=== PATIENT | male | born 1965 | race Caucasian/White ===

== ENCOUNTER 2017-08-31 23:45 | Emergency (ER) | payer BC, OTHER ==
--- NOTE | 2017-09-01 00:31 | ED Physician Documentation ---
PD HPI Fall - Stated complaint Stated Complaint: FALL,RIB PX - Chief complaint Chief Complaint: Trauma Ch/Bk - History obtained from History obtained from: Patient, Family - History of Present Illness Mechanism of injury: Slipped Fall distance: Other (three steps) Where injury occurred: Home Timing - onset: Today Injury(ies) location: Back, Left Quality of pain: Pain, Aching Associated symptoms: No: LOC, AMS, Amnesia Worsens with: Movement, Palpation Similar symptoms before: Has not had sx before Recently seen: Not recently seen - Additional information Additional information: patient is a 52 year old male with no significant past medical history who is presenting to the emergency department for rib and back pain after falling. patient states that the alarm for his septic tank went off and he went outside to check on it and slipped on his third step. Patient denies loc but is complaining of left posterior rib pain. patient states that he has fractured his ribs before and it feels the same. Review of Systems Constitutional: denies: Fever Eyes: denies: Decreased vision Ears: denies: Drainage/discharge Nose: denies: Epistaxis Throat: denies: Dental pain / toothache Cardiac: denies: Chest pain / pressure Respiratory: denies: Cough, Wheezing GI: denies: Nausea, Vomiting : reports: Reviewed and negative Skin: reports: Abrasion (s) Musculoskeletal: reports: Back pain, Extremity pain Neurologic: denies: Generalized weakness, Focal weakness, Headache, Head injury , LOC Immunocompromised: denies: Immunocompromised PD PAST MEDICAL HISTORY - Past Medical History Past Medical History: Yes Cardiovascular: Hypertension, High cholesterol Endocrine/Autoimmune: Type 2 diabetes - Past Surgical History Past Surgical History: Yes - Present Medications Home Medications: Ambulatory Orders Medication Instructions Recorded Confirmed Atorvastatin Calcium 1 tab PO DAILY 08/31/17 08/31/17 Insulin Glargine [Lantus Solostar] 30 units SQ BID 08/31/17 08/31/17 Lisinopril 1 tab PO DAILY 08/31/17 08/31/17 metFORMIN [Glucophage] 1 tab PO DAILY 08/31/17 08/31/17 Oxycodone HCl/Acetaminophen 1 - 2 each PO Q6H PRN #14 tablet 09/01/17 [Percocet 5-325 mg Tablet] - Allergies Allergies/Adverse Reactions: Allergies Allergy/AdvReac Type Severity Reaction Status Date / Time No Known Drug Allergies Allergy Verified 08/31/17 23:53 - Social History Does the pt smoke?: No Smoking Status: Never smoker Does the pt drink ETOH?: Yes Does the pt have substance abuse?: No - Immunizations Immunizations are current?: Yes - POLST Patient has POLST: No PD ED PE NORMAL - Vitals Vital signs reviewed: Yes - General General: Alert and oriented X 3, No acute distress - HEENT HEENT: Atraumatic, PERRL - Neck Neck: No bony TTP - Cardiac Cardiac: RRR, No murmur - Respiratory Respiratory: No respiratory distress - Extremities Extremities: No deformity, Normal ROM s pain - Neuro Neuro: Alert and oriented X 3, No motor deficit, No sensory deficit, Normal speech Eye Opening: Spontaneous Motor: Obeys Commands Verbal: Oriented GCS Score: 15 PD ED PE EXPANDED - Back Back: Vertebral tenderness (tenderness to palpation of upper thoracic region with small abrasion. ), Soft tissue tenderness Results - Vitals Vitals: Vital Signs - 24 hr 08/31/17 23:50 Temperature 36.4 C L Heart Rate 89 Respiratory 16 Rate Blood Pressure 167/81 H O2 Saturation 97 Oxygen O2 Source Room air - Rads (name of study) rib series Radiology: Final report received (posterior fracture of rib 7,8 ) PD MEDICAL DECISION MAKING - ED course Complexity details: reviewed old records, reviewed results, re-evaluated patient , considered differential, d/w patient, d/w family ED course: Patient was seen and examined at bedside. Patient was sent for imaging. When patient returned he stated his pain had returned and was treated with percocet. Patient's films were reviewed and showed two posterior rib fractures. patient was given an incentive spirometer. Patient required no further work up and was stable for discharge with outpatient follow up. Departure - Departure Disposition: 01 Home, Self Care Clinical Impression: Fracture of rib Condition: Good Instructions: ED Fx Rib Follow-Up: Danii Brambila, GENETIC PHYSICIAN [Primary Care Provider] - As Needed Prescriptions: Oxycodone HCl/Acetaminophen [Percocet 5-325 mg Tablet] 1 - 2 each PO Q6H PRN # 14 tablet PRN Reason: pain Comments: Your symptoms today are being caused by rib fractures. They can take a long time to heal. It is important to make sure you continue to take deep breaths so that you don't get pneumonia. You can take motrin or tylenol as needed for pain and percocet for breakthrough pain. You should return to the emergency department for fevers, chills, new worsenign or uncontrollable symptoms.
[2017-09-01] MEDS ORDERED: oxyCOD/ACETAMIN 5 MG/325 MG TABLET PO STA (00:36)
--- NOTE | 2017-09-01 01:04 | XRAY Preliminary Report ---
Exam: XR RIBS W/PA CHEST LT IMPRESSION: 1. Acute-appearing posterior fracture of the left seventh and eighth ribs. 2. No definite acute cardiopulmonary abnormality noted elsewhere. [facility] SITE ID: [id number]
--- NOTE | 2017-09-01 01:05 | XRAY Report ---
EXAM: CHEST AND LEFT RIB RADIOGRAPHY EXAM DATE: 09/01/2017 12:42 AM. CLINICAL HISTORY: Fall, back and rib pain. COMPARISON: None. TECHNIQUE: 1 view of the chest and 4 views of the ribs. FINDINGS: Bones: BB marker projects over the left lower hemithorax anteriorly. There is an acute appearing frac ture through the lateral portion of the left seventh and eighth ribs. Old healed posteriorly located right-sided fifth through seventh rib fractures. Lungs and pleura: No focal opacities. No pneumothorax. No pleural effusions. Mediastinum: Heart and mediastinal contours are unremarkable. Other: None. IMPRESSION: 1. Acute-appearing posterior fracture of the left seventh and eighth ribs. 2. No definite acute cardiopulmonary abnormality noted elsewhere. [facility] Referring Provider Line: [phone] SITE ID: [id number]
[2017-09-01 01:32] VITALS: BP 131/70
== END 2017-09-01 01:43 | disposition home or self-care (01) ==
LOC: ED 23:45
DX: S22.42XA Multiple fractures of ribs, left side, initial encounter for closed fracture (principal); S20.312A Abrasion of left front wall of thorax, initial encounter; W10.8XXA Fall (on) (from) other stairs and steps, initial encounter; Y92.019 Unspecified place in single-family (private) house as the place of occurrence of the external cause; I10 Essential (primary) hypertension; E78.00 Pure hypercholesterolemia, unspecified; E11.9 Type 2 diabetes mellitus without complications; Z79.4 Long term (current) use of insulin
CPT/HCPCS: 71101; 99283; 99284; A9270

== ENCOUNTER 2018-10-18 18:18 | Outpatient (CLI) | payer OTHER ==
--- NOTE | 2018-10-18 21:23 | XRAY Report ---
Reason: PAIN IN LEFT HIP Procedure Date: 10/18/2018 Accession Number: [id number] / [id number] Procedure: XR - Hip w/Pelvis 2-3V LT CPT Code: FULL RESULT: EXAM: PELVIS RADIOGRAPHY EXAM DATE: 10/18/2018 06:50 PM. CLINICAL HISTORY: PAIN IN LEFT HIP. COMPARISON: None. TECHNIQUE: 1 view. FINDINGS: Bones: Normal. No fracture or bone lesion. Joints: The visualized hip, pubis symphysis, and sacroiliac joints are preserved. No subluxation. Soft Tissues: Normal. No soft tissue swelling. IMPRESSION: No evidence of fracture or dislocation. No significant degenerative disease. [facility]
== END 2018-10-18 18:19 | disposition home or self-care (01) ==
LOC: DI 18:18
PROVIDERS: ATTEND Registered Nurse
DX: M25.552 Pain in left hip (principal)

== ENCOUNTER 2020-01-30 14:42 | Outpatient (CLI) | payer OTHER ==
--- NOTE | 2020-01-30 16:33 | XRAY Report ---
PROCEDURE: Toe(s) RT INDICATIONS: SWELLING,MASS LUMP,RT LOWER LIMB TECHNIQUE: 3 views of the right second toe(s) acquired. COMPARISON: None FINDINGS: Bones: Mildly comminuted intra-articular fracture involving the base of the second toe middle phalanx as well as an intra-articular fracture involving the head of the second toe proximal phalanx. There is overlying soft tissue edema.. No suspicious bony lesions. Soft tissues: No suspicious soft tissue densities. Scattered vascular calcifications are present. IMPRESSION: Mildly comminuted intra-articular fractures involving the base of the second toe middle phalanx and h ead of the second toe proximal phalanx. Reviewed by: Silas Jo MD on 01/30/2020 4:32 PM PDT Approved by: Silas Jo MD on 01/30/2020 4:32 PM PDT Station ID: [id number]
== END 2020-01-30 14:43 | disposition home or self-care (01) ==
LOC: DI 14:42
PROVIDERS: ATTEND Registered Nurse
DX: S92.321A Displaced fracture of second metatarsal bone, right foot, initial encounter for closed fracture (principal)
CPT/HCPCS: 73660

== ENCOUNTER 2022-05-24 18:20 | Emergency (ER) | payer OTHER ==
--- NOTE | 2022-05-24 18:50 | ED Physician Documentation ---
History of Present Illness - Stated complaint Stated Complaint: R FOOT SWOLLEN - Chief complaint Chief Complaint: Ext Problem - History obtained from History obtained from: Patient - History of Present Illness Timing: How many weeks ago (1) Pain level max: 0 Pain level now: 0 - Additonal information Additional information: Patient is a 57-year-old male who presents to the emergency department with swelling of the right foot. He states this started on the right third toe. He has a history of diabetes, insulin-dependent. Has neuropathy in the feet. He states he trimmed his toenails and then a few days later noticed the toe started to become red and swollen. He went to the walk-in clinic today where he was given a dose of intramuscular Rocephin. A x-ray there showed osteomyelitis of the distal phalanx. Was sent here for evaluation. No fevers. No chills. Nothing makes it better or worse. Review of Systems Constitutional: denies: Fever, Chills GI: denies: Vomiting Skin: denies: Rash Musculoskeletal: denies: Neck pain, Back pain Neurologic: denies: Headache PD PAST MEDICAL HISTORY - Past Medical History Past Medical History: Yes Cardiovascular: Hypertension, High cholesterol Endocrine/Autoimmune: Type 2 diabetes - Past Surgical History Past Surgical History: Yes - Present Medications Home Medications: Ambulatory Orders Medication Instructions Recorded Confirmed Atorvastatin Calcium 1 tab PO DAILY 08/31/17 08/31/17 Insulin Glargine [Lantus Solostar] 30 units SQ BID 08/31/17 08/31/17 lisinopriL [Lisinopril] 1 tab PO DAILY 08/31/17 08/31/17 metFORMIN [Glucophage] 1 tab PO DAILY 08/31/17 08/31/17 Oxycodone HCl/Acetaminophen 1 - 2 each PO Q6H PRN #14 tablet 09/01/17 [Percocet 5-325 mg Tablet] clindamycin HCL [Cleocin HCl] 300 mg PO Q6H #40 cap 05/24/22 - Allergies Allergies/Adverse Reactions: Allergies Allergy/AdvReac Type Severity Reaction Status Date / Time No Known Drug Allergies Allergy Verified 05/24/22 18:29 - Social History Does the pt smoke?: No Smoking Status: Never smoker Does the pt drink ETOH?: Yes Does the pt have substance abuse?: No - Immunizations Immunizations are current?: Yes - POLST Patient has POLST: No PD ED PE NORMAL - Vitals Vital signs reviewed: Yes - General General: Alert and oriented X 3, No acute distress - HEENT HEENT: Moist mucous membranes - Neck Neck: Supple, no meningeal sign - Cardiac Cardiac: Strong equal pulses - Derm Derm: Warm and dry - Extremities Extremities: Other (R foot - . There is swelling and erythema to the third toe. There is a small scab at the tip of the toe with a small amount of purulent drainage. There is no erythema extending up the foot or leg. Neurovascularly intact. Good cap refill. Palpable DP and PT pulses) - Neuro Neuro: Alert and oriented X 3 - Psych Psych: Normal mood, Normal affect Results - Vitals Vitals: Vital Signs - 24 hr 05/24/22 05/24/22 05/24/22 18:23 18:29 20:29 Temperature 36.9 C 36.9 C 36.6 C Heart Rate 100 100 88 Respiratory 16 16 16 Rate Blood Pressure 168/83 H 168/83 H 160/80 H O2 Saturation 100 100 100 Oxygen O2 Source Room air - Labs Labs: Laboratory Tests 05/24/22 05/24/22 05/24/22 19:05 19:05 19:05 WBC 8.7 RBC 5.40 Hgb 15.9 Hct 46.9 MCV 86.9 MCH 29.4 MCHC 33.9 RDW 13.2 Plt Count 219 MPV 9.3 Neut # (Auto) 5.9 Lymph # (Auto) 1.9 Crenshaw # (Auto) 0.7 Eos # (Auto) 0.2 Baso # (Auto) 0.1 Absolute Nucleated RBC 0.00 Nucleated RBC % 0.0 ESR 1 Sodium 136 Potassium 4.1 Chloride 100 L Carbon Dioxide 26 Anion Gap 10.0 BUN 23 H Creatinine 1.0 Estimated GFR (MDRD) 77 L Glucose 127 H Calcium 9.5 C-Reactive Protein 1.7 H - Rads (name of study) Right foot x-ray Radiology: Final report received, EMP read contemporaneously, See rad report PD MEDICAL DECISION MAKING - ED course Complexity details: reviewed results, re-evaluated patient, considered differential, d/w patient, d/w senior internet sales consultant ED course: 57-year-old male presents to the emergency department with a right third toe infection. He is diabetic and does not have a neuropathy in that foot. He was given Rocephin at the walk-in clinic earlier today. I discussed the case with Dr. Edouard, orthopedics who recommends oral antibiotics and follow-up in clinic. Patient has a normal sed rate, minimally elevated CRP and normal white blood cell count. Does not appear to need IV antibiotics at this time. He will follow-up closely with orthopedics. Patient counseled regarding signs and symptoms for which I believe and urgent re-evaluation would be necessary. Patient with good understanding of and agreement to plan and is comfortable going home at this time This document was made in part using voice recognition software. While efforts are made to proofread this document, sound alike and grammatical errors may occur. IMPRESSION: Findings consistent with osteomyelitis of the distal phalanx of the right third toe. Departure - Departure Disposition: 01 Home, Self Care Clinical Impression: Osteomyelitis due to type 2 diabetes mellitus Cellulitis Qualifiers: Site of cellulitis: extremity Site of cellulitis of extremity: lower extremity Laterality: right Qualified Code(s): L03.115 - Cellulitis of right lower limb Condition: Good Instructions: ED Infec Skin Cellulitis Follow-Up: Danii Brambila ARNP [Primary Care Provider] - [facility] [Provider Group] - Within 1 week Prescriptions: clindamycin HCL [Cleocin HCl] 300 mg PO Q6H #40 cap Comments: Please follow-up with orthopedics closely for wound checks and further care. Please take all antibiotics until gone. I did speak with Dr. Javan stringer. Please return if you notice redness continuing up your foot or blackness developing on your toe. Your prescriptions were sent to [facility] in [place]. Discharge Date/Time: 05/24/22 20:35
[2022-05-24 19:13] LABS: BASOPHILS # (AUTO) 0.1 10^3/uL (0.0-0.1); BASOPHILS % (AUTO) 0.7 %; EOSINOPHILS # (AUTO) 0.2 10^3/uL (0.0-0.7); EOSINOPHILS % (AUTO) 2.2 %; HCT - HEMATOCRIT 46.9 % (42.0-52.0); HGB - HEMOGLOBIN 15.9 g/dL (14.0-18.0); LYMPHOCYTES # (AUTO) 1.9 10^3/uL (1.5-3.5); LYMPHOCYTES % (AUTO) 21.7 %; MEAN CORPUSCULAR HEMOGLOBIN 29.4 pg (27.0-31.0); MEAN CORPUSCULAR HGB CONC 33.9 g/dL (32.0-36.0); MEAN CORPUSCULAR VOLUME 86.9 fL (80.0-94.0); MEAN PLATELET VOLUME 9.3 fL (7.4-11.4); MONOCYTES # (AUTO) 0.7 10^3/uL (0.0-1.0); MONOCYTES % (AUTO) 7.8 %; NEUTROPHILS # (AUTO) 5.9 10^3/uL (1.5-6.6); NEUTROPHILS % (AUTO) 67.4 %; PLT - PLATELET COUNT 219 10^3/uL (130-450); RED CELL DISTRIBUTION WIDTH 13.2 % (12.0-15.0); WHITE BLOOD COUNT 8.7 x10^3/uL (4.8-10.8)
[2022-05-24 19:30] LABS: CALCIUM 9.5 mg/dL (8.5-10.3); CRP - C-REACTIVE PROTEIN 1.7 mg/dL (0-1.0); POTASSIUM 4.1 mmol/L (3.5-5.0)
--- NOTE | 2022-05-24 19:59 | XRAY Report ---
PROCEDURE: Foot 3 View RT INDICATIONS: R foot swelling, redness, poss osteo 3rd toe TECHNIQUE: 3 views of the foot were acquired. COMPARISON: Radiographs from earlier same day FINDINGS: Bones: No acute fractures or dislocations. Redemonstration of osseous erosion and cortical disruptio n involving the distal tip of the right third toe distal phalanx. Remainder of the osseous structures are intact. Background degenerative changes. Soft tissues: No tibiotalar joint effusion. Achilles tendon appears normal. Soft tissue swelling o f the right third toe with apparent distal tip soft tissue defect. Vascular calcifications are noted. IMPRESSION: Findings consistent with osteomyelitis of the distal phalanx of the right third toe. Reviewed by: Silas Jo MD on 05/24/2022 7:57 PM PDT Approved by: Silas Jo MD on 05/24/2022 7:57 PM PDT Station ID: [id number]
[2022-05-24 20:34] VITALS: BP 160/80
== END 2022-05-24 20:35 | disposition home or self-care (01) ==
LOC: ED 18:20
DX: E11.69 Type 2 diabetes mellitus with other specified complication (principal); E11.42 Type 2 diabetes mellitus with diabetic polyneuropathy; L03.031 Cellulitis of right toe; M86.9 Osteomyelitis, unspecified; Z79.4 Long term (current) use of insulin; I10 Essential (primary) hypertension; E11.621 Type 2 diabetes mellitus with foot ulcer; L97.519 Non-pressure chronic ulcer of other part of right foot with unspecified severity
CPT/HCPCS: 36415; 80048; 85025; 85651; 86140; 87070; 87077; 87181; 87205; 99283; 99284

== ENCOUNTER 2022-05-24 18:25 | Outpatient (CLI) | payer OTHER ==
--- NOTE | 2022-05-24 16:40 | XRAY Report ---
PROCEDURE: Toe(s) RT INDICATIONS: DM2 WITH DIABETIC FOOT ULCER TECHNIQUE: Three views of the right and 3rd toe(s) acquired. COMPARISON: None. FINDINGS: Destructive lytic and erosive changes of the right 3rd distal phalanx involving the tuft and shaft. O sseous structures demonstrate no additional osseous lesion. Diffuse Monckeberg calcifications in the foot. Soft tissue swelling of the 3rd digit. IMPRESSION: Probable osteomyelitis involving the right 3rd distal phalanx. Reviewed by: Jhonatan Lara MD on 05/24/2022 4:39 PM PDT Approved by: Jhonatan Lara MD on 05/24/2022 4:39 PM PDT Station ID: [id number]
== END 2022-05-24 18:26 | disposition home or self-care (01) ==
LOC: DI.S 18:25
PROVIDERS: ATTEND Physician Assistant Medical
DX: E11.621 Type 2 diabetes mellitus with foot ulcer (principal); L97.519 Non-pressure chronic ulcer of other part of right foot with unspecified severity; M85.871 Other specified disorders of bone density and structure, right ankle and foot

== ENCOUNTER 2022-06-16 09:27 | Outpatient (CLI) | payer OTHER ==
--- NOTE | 2022-06-16 15:38 | XRAY Report ---
PROCEDURE: Toe(s) RT INDICATIONS: RIGHT 3RD TOE WOUND TECHNIQUE: 3 views of the third toe(s) acquired. COMPARISON: X-ray foot 05/24/2022 FINDINGS: Bones: No fractures or dislocations. There is osseous erosion of the distal phalanx third digit over all appearance has not significantly changed. Soft tissues: No suspicious soft tissue densities. IMPRESSION: Erosive appearance of the third digit most consistent with osteomyelitis, stable. Reviewed by: Stephanie Godoy MD on 06/16/2022 3:37 PM PDT Approved by: Stephanie Godoy MD on 06/16/2022 3:37 PM PDT Station ID: [id number]
== END 2022-06-16 09:28 | disposition home or self-care (01) ==
LOC: DI.WOS 09:27
PROVIDERS: ATTEND Orthopaedic Surgery
DX: M86.171 Other acute osteomyelitis, right ankle and foot (principal)

== ENCOUNTER 2022-07-11 08:00 | Outpatient (CLI) | payer OTHER ==
--- NOTE | 2022-07-11 16:12 | XRAY Report ---
PROCEDURE: Toe(s) RT INDICATIONS: RIGHT 3RD TOE PAIN TECHNIQUE: 3 views of the third toe(s) acquired. COMPARISON: X-ray 06/16/2022 FINDINGS: Bones: There are distal phalanx continues to demonstrate an erosive appearance although slightly less fragmented when compared to prior exam. No new areas of erosion are identified. No suspicious bony l esions. Soft tissues: No suspicious soft tissue densities. IMPRESSION: Persistent appearance of erosive change concerning for osteomyelitis of the third digit as described above. No new foci are identified. Reviewed by: Stephanie Godoy MD on 07/11/2022 4:10 PM PST Approved by: Stephanie Godoy MD on 07/11/2022 4:10 PM PST Station ID: [id number]
== END 2022-07-11 23:59 | disposition home or self-care (01) ==
LOC: DI.WOS 08:00
PROVIDERS: ATTEND Orthopaedic Surgery
DX: M86.179 Other acute osteomyelitis, unspecified ankle and foot (principal)